=== PATIENT | female | born 1990 | race Caucasian/White ===

== ENCOUNTER 2021-06-14 18:10 | Emergency (ER) | payer OTHER, SELFPAY ==
[2021-06-14 18:19] VITALS: BP 133/76; PULSE 100; RESP 18; TEMP 36.6; O2SAT 100; BMI 32.1
--- NOTE | 2021-06-14 18:35 | DI.US.S_ITS ---
PROCEDURE: US OB <= 14 WEEKS FETUS INDICATIONS: VAGINAL BLEEDING OUTSIDE/PRIOR DATING DATA: Last menstrual period (LMP): 05/10/2021. LMP-based estimated date of delivery (NESTOR): 02/14/2022. First dating scan (date and location): 06/14/2021. Estimated date of delivery (NESTOR) from first dating scan: 02/11/2022. TECHNIQUE: Real-time scanning was performed of the fetus and maternal pelvic organs, with image documentation. Endovaginal scanning was also performed to better visualize the fetus and maternal ovaries. COMPARISON: None. FINDINGS: Embryo: There is a fluid collection within the uterus likely representing a gestational sac with a mean sac diameter of 0.7 cm corresponding to a gestational age of 5 weeks 3 days. No discrete yolk sac or pole identified. There is an adjacent lobulated hypoechoic collection measuring 1.8 x 0.6 x 2.1 cm suggestive of a subchorionic hematoma. Measurement variability in dating: +/- 4 weeks by LMP, +/- 7 days by mean sac diameter (use before 6 weeks gestation if crown-rump length not able to be measured), +/- 5 days by crown-rump length (up to 8 weeks 6 days gestation), +/- 7 days by crown-rump length (up to 13 weeks 6 days gestation). Maternal organs: The ovaries appear within normal size limits. There is a cyst within the left ovary measuring up to approximately 2.6 cm compatible with a corpus luteal cyst. There is patent arterial flow demonstrated within the ovaries. IMPRESSION: 1. Intrauterine fluid collection likely representing a gestational sac. No discrete yolk sac or pole visualized, likely due to early gestational age. A pseudo gestational sac with ectopic cannot be fully excluded. Recommend follow-up clinically and a short-term repeat ultrasound if indicated. 2. Probable corpus luteal cyst within the left ovary. 3. Lobulated fluid collection adjacent to the gestational sac compatible with a subchorionic hematoma. Dictated by: Tho Rhodes M.D. on 06/14/2021 at 20:47 Approved by: Tho Rhodes M.D. on 06/14/2021 at 20:52
[2021-06-14 19:18] VITALS: BP 134/78; PULSE 94; RESP 18; O2SAT 98
--- NOTE | 2021-06-14 19:35 | ED.PREGNANCY ---
HPI - <Salvatore Weiss PA-C - Last Filed: 06/15/21 07:10> General Chief complaint: Vaginal Bleeding Stated complaint: 5 weeks /bleeding Time Seen by Provider: 06/14/21 18:34 Mode of arrival: Ambulatory History of Present Illness HPI Narrative: Alyson is an otherwise healthy 31-year-old female who is at approximately 5 weeks . Over the last 3 days she has experienced occasional left-sided abdominal pain and occasional vaginal bleeding. She is concerned that she either has an ectopic or has experienced a miscarriage. She denies any significant nausea, vomiting, urinary symptoms, diarrhea, constipation or any other acute concerns or complaints at this time. She currently does not have any abdominal pain and is not bleeding. Related Data Allergies Allergy/AdvReac Type Severity Reaction Status Date / Time No Known Drug Allergies Allergy Verified 06/14/21 18:19 Review of Systems <Salvatore Weiss PA-C - Last Filed: 06/15/21 07:10> Review of Systems Narrative: As per HPI Exam <Salvatore Weiss PA-C - Last Filed: 06/15/21 07:10> Narrative Exam Narrative: Exam Narrative: Const General: cooperative, healthy appearing, comfortable, no acute distress, well developed and well groomed Nutritional Appearance: Elevated BMI Orientation: alert and oriented x3 HENMT Head: normal to inspection and atraumatic Ears: hearing grossly normal bilaterally Nose: external nose normal and nares normal Face and sinus: normal facial exam Neck Neck: normal visual inspection and supple Resp Effort & Inspection: normal respiratory effort, able to speak in complete sentences, no audible wheezes, not labored, no nasal flaring and no respiratory distress GI Nondistended, normal bowel sounds, nontender to palpation. Neuro General: alert, oriented x3, gait normal, tone normal and moves all extremities Cognition: normal cognition Speech: speech normal Gait: normal gait Psych Appearance: grossly normal and well kempt Mental Status: mental status grossly normal Speech and Movement: speech and movement normal Mood: congruent mood Affect: normal affect Initial Vital Signs Initial Vital Signs: Vital Signs Temperature 98 F 06/14/21 18:19 Pulse Rate 100 H 06/14/21 18:19 Respiratory Rate 18 06/14/21 18:19 Blood Pressure 133/76 06/14/21 18:19 Pulse Oximetry 100 06/14/21 18:19 <Chuyita Arriola MD - Last Filed: 06/16/21 02:52> Initial Vital Signs Initial Vital Signs: Vital Signs Temperature 98 F 06/14/21 18:19 Pulse Rate 100 H 06/14/21 18:19 Respiratory Rate 18 06/14/21 18:19 Blood Pressure 133/76 06/14/21 18:19 Pulse Oximetry 100 06/14/21 18:19 Course <Salvatore Weiss PA-C - Last Filed: 06/15/21 07:10> Orders Ordered: ED Orders 06/14/21 18:35 US OB <= 14 weeks fetus Stat 06/14/21 18:55 ABO RH Type Stat HCG Quantitative /Beta subunit Stat Vital Signs Vital signs: Vital Signs - 8 hr 06/14/21 18:19 06/14/21 19:18 Temperature 98 F Pulse Rate 100 H 94 H Respiratory Rate 18 18 Blood Pressure 133/76 134/78 Pulse Oximetry 100 98 <Chuyita Arriola MD - Last Filed: 06/16/21 02:52> Orders Ordered: ED Orders 06/14/21 18:35 US OB <= 14 weeks fetus Stat 06/14/21 18:55 ABO RH Type Stat HCG Quantitative /Beta subunit Stat Vital Signs Vital signs: Vital Signs - 8 hr 06/14/21 18:19 06/14/21 19:18 Temperature 98 F Pulse Rate 100 H 94 H Respiratory Rate 18 18 Blood Pressure 133/76 134/78 Pulse Oximetry 100 98 MDM - OB/Uterine Contractions <Salvatore Weiss PA-C - Last Filed: 06/15/21 07:10> Lab Data Labs: Lab Results 06/14/21 06/14/21 Range/Units 18:55 18:55 HCG, Quant 3477.0 mIU/mL Blood Type O Positive Point of Care Testing Test Results Positive Urine Dip Bedside Urine Glucose Negative Bedside Urine Bilirubin - Negative Bedside Urine Ketone - Negative Urine Specific [place] 1.010 Bedside Urine Occult Blood - Negative Bedside Urine pH 6 Bedside Urine Protein - Negative Bedside Urine Urobilinogen - Negative Bedside Urine Nitrite - Negative Bedside Urine Leukocytes - Negative Esterase MDM Narrative Medical decision making narrative: Differential diagnosis includes ectopic , threatened , completed . Patient is well-appearing at this time and does not have any significant abdominal pain or bleeding. Vital signs are reassuring. She has had intermittent abdominal cramping and intermittent light bleeding. She has an appropriate beta HCG level for her gestational age and the ultrasound shows intrauterine gestational sac. Heterotopic cannot be completely ruled out. However, given her well appearance, appropriate beta HCG levels and mild symptoms I think that outpatient management close follow-up is appropriate. She agreed to follow up in 48-72 hours for repeat beta-hCG levels and re-evaluation. Strict ER return precautions were discussed with the patient. Patient verbalizes understanding and agrees to plan and has no further concerns at this time. Thank you A [id number] system was used with the dictation of this note. Please disregard any spelling or grammatical errors. <Chuyita Arriola MD - Last Filed: 06/16/21 02:52> Lab Data Labs: Lab Results 06/14/21 06/14/21 Range/Units 18:55 18:55 HCG, Quant 3477.0 mIU/mL Blood Type O Positive Point of Care Testing Test Results Positive Urine Dip Bedside Urine Glucose Negative Bedside Urine Bilirubin - Negative Bedside Urine Ketone - Negative Urine Specific [place] 1.010 Bedside Urine Occult Blood - Negative Bedside Urine pH 6 Bedside Urine Protein - Negative Bedside Urine Urobilinogen - Negative Bedside Urine Nitrite - Negative Bedside Urine Leukocytes - Negative Esterase Discharge Plan Departure Patient Disposition: Home Clinical Impression: First trimester bleeding Instructions: DI for Vaginal Bleeding During Activity Restrictions/Additional Instructions: It was very nice to meet you this evening. Please follow-up and 72 hours to have repeat beta-hCG level checked. Please give your PCP a call to schedule a follow-up appointment. If you experience significant worsening bleeding, worsening abdominal pain, lightheadedness, dizziness, or have any additional concerns or complaints do not hesitate return immediately for re-evaluation. Thank you Salvatore Weiss PA-C <Chuyita Arriola MD - Last Filed: 06/16/21 02:52> Cosign ED Attending Cosignature Attestation: I was immediately available in the department for consultation throughout this patient's visit. I agree with documentation as above. Chuyita Arriola MD
== END 2021-06-14 20:20 | disposition home or self-care (01) ==
PROVIDERS: Emergency Provider Physician Assistant
DX: O20.9 Hemorrhage in early pregnancy, unspecified (principal); Z3A.01 Less than 8 weeks gestation of pregnancy
CPT/HCPCS: 36415; 76801; 76830; 81003; 81025; 84702; 86900; 86901; 99283